=== PATIENT | female | born 1970 | race Caucasian/White ===

== ENCOUNTER → 2017-04-04 | Day surgery (SDC) | payer OTHER ==
[~2017-04-04] MED LIST: ATOR20TA58 PO; BUDE10.22 IH; BUPR150T11 PO; CETI10TA16 PO; CYCL10TA2 PO; FLUT16SP NS; GABA-586 PO; HYDR25TA9 PO; HYDR2TAB31 PO; IPRA4AER IH; IV RINGERS,LACTATED 1000ML 1,000 ML IV SCH; LEVO100T5 PO; LIDO30CR TP; LIDOCAINE 1% PF 2 ML VIAL. ID PRN; METF500T4 PO; METO50TA2 PO; MORP15TA PO; OMEP40CA5 PO; ONDANSETRON PF 4 MG/2 ML VIAL. IV PRN; PHENYLEPHRINE in 0.9% NACL PF 1 MG/10 ML DISP.SYRIN. IV ONE; POTA20TA82 PO; PROCHLORPERAZINE 10 MG/2 ML VIAL. IV PRN; RANI150T2 PO; SELENIUM; SUMA100T4 PO; ZOLP10TA4 PO; fentaNYL PF VIAL 100 MCG/2 ML VIAL IV PRN
[2017-04-04 12:50] VITALS: BP 125/85
== END | disposition home or self-care (01) ==
LOC: SURG 12:04
PROVIDERS: ATTEND Orthopaedic Surgery
DX: S83.519A Sprain of anterior cruciate ligament of unspecified knee, initial encounter (principal); Z53.8 Procedure and treatment not carried out for other reasons; S83.209A Unspecified tear of unspecified meniscus, current injury, unspecified knee, initial encounter; X58.XXXA Exposure to other specified factors, initial encounter; Y93.89 Activity, other specified; Y92.89 Other specified places as the place of occurrence of the external cause; Y99.8 Other external cause status; E78.00 Pure hypercholesterolemia, unspecified; E66.9 Obesity, unspecified; J45.909 Unspecified asthma, uncomplicated; E11.9 Type 2 diabetes mellitus without complications; E03.9 Hypothyroidism, unspecified; F32.9 Major depressive disorder, single episode, unspecified; Z72.0 Tobacco use; Z86.39 Personal history of other endocrine, nutritional and metabolic disease; Z90.710 Acquired absence of both cervix and uterus; Z88.8 Allergy status to other drugs, medicaments and biological substances
CPT/HCPCS: 82962; J2370; J0690

== ENCOUNTER 2017-04-18 11:43 | Day surgery (SDC) | payer OTHER ==
[~2017-04-18] VITALS: Ht 160 cm; Wt 91.0 kg
[~2017-04-18 11:43] MED LIST changes: +BUPIVACAINE 0.5% 50 ML VIAL. ONE; +BUPIVACAINE-EPI 0.25%-1:200000 50 ML VIAL. ONE; +EPINEPHrine VIAL 30 MG/30 ML VIAL ONE; -HYDR2TAB31 PO; +LIDOCAINE 2% PF Vial for OR 5 ML VIAL. ONE; -METO50TA2 PO; +METO50TA6 PO; -PHENYLEPHRINE in 0.9% NACL PF 1 MG/10 ML DISP.SYRIN. IV ONE; +PROPOFOL 20 ML IV ONE; +fentaNYL PF VIAL 100 MCG/2 ML VIAL ONE
[2017-04-18] MEDS ORDERED: LIDOCAINE 2% PF Vial for OR 5 ML VIAL. ONE (13:52)
[2017-04-18] MEDS ORDERED: ONDANSETRON PF 4 MG/2 ML VIAL. ONE (13:52)
[2017-04-18] MEDS ORDERED: FAMOTIDINE 20 MG/2 ML VIAL ONE (13:52)
[2017-04-18] MEDS ORDERED: DEXAMETHASONE SOD PHOS 20 MG/5 ML VIAL. ONE (13:52)
[2017-04-18] MEDS ORDERED: PROPOFOL 20 ML IV ONE (13:52)
[2017-04-18] MEDS ORDERED: fentaNYL PF VIAL 100 MCG/2 ML VIAL ONE ×3 (13:53→17:28)
[2017-04-18] MEDS ORDERED: MIDAZOLAM HCL/PF 2 MG/2 ML VIAL. ONE (13:53)
[2017-04-18] MEDS ORDERED: ROCURONIUM 100 MG/10 ML VIAL. ONE (13:55)
--- NOTE | 2017-04-18 15:42 | DISCH ---
DISCHARGE INSTRUCTIONS Condition on Discharge Condition on Discharge: Stable Activity After Discharge Activity Instructions for Disc: Other, see below Other activity instructions: weightbearing as tolerated with crutch assistance Weight Bearing Status after Di: As tolerated Diet after Discharge Diet after Discharge: Regular Wound Incision Care Wound/Incision Care: Ice to area for comfort, Change dressing Other wound/incision instructi: May remove dressing in 3 days may then shower Community/Resources/Services Services at Discharge: PT EVALUATE & TREAT (start physical therapy with range of motion and closed chain strengthening exercises advancing as tolerated) Contacting the DRKristie after DC Call your doctor for: Concerns you may have Follow-Up Follow up with: Alem 7-10 days Treatment/Equipment after DC Adaptive Equipment Issued: SAMIR Flores MD Apr 18, 2017 15:42
[2017-04-18] MEDS ORDERED: HYDR2TAB31 PO (15:44)
[2017-04-18] MEDS ORDERED: NEOSTIGMINE 10 MG/10 ML VIAL. ONE (16:53)
[2017-04-18] MEDS ORDERED: GLYCOPYRROLATE 1 MG/5 ML VIAL. ONE (16:54)
[2017-04-18] MEDS ORDERED: SEVOFLURANE > 120 MINUTES. IH ONE (17:31)
[2017-04-18] MEDS: fentaNYL PF VIAL 100 MCG/2 ML VIAL IV PRN ×2 (17:40→17:51)
--- NOTE | 2017-04-18 17:55 | PDOC4 ---
Operative Note Operative Note Date of surgery: 04/18/2017 Preoperative diagnosis: ACL and medial meniscal tears. Postoperative diagnosis: Same Operative procedure: Right knee arthroscopy allograft ACL reconstruction medial meniscus repair Surgeon: Alem Anesthesia: GenKristie endotracheal Estimated blood loss 10 mL Complications: None Operative indications: Patient is a 47-year-old female with an unstable right knee status post injury MRI confirmed clinical suspicion of an ACL tear and also showed medial meniscus tear. I had gone over natural course of ACL injury possibility of nonoperative treatment bracing if necessary versus operative treatment for reconstruction and addressing of the meniscus pathology. We talked about possibility of donor graft reconstruction versus autograft tissue and risks and benefits of each. She prefers to undergo the donor graft rout for ACL reconstruction and is aware of the long rehabilitation process possibility of infection continued instability nerve or blood vessel damage medical or other anesthetic competitions among others. Consent was obtained and she agrees to proceed Operative text: Patient was identified procedure verified patient placed in the supine position on the operating table after adequate amounts of general endotracheal anesthesia were administered the right lower extremity with a thigh tourniquet and the right lower extremity was prepped and draped in standard sterile fashion. The right knee was examined and found to have lax anterior cruciate ligamentassociated ligaments and stability. After timeout was performed patient procedure identified and verified the right lower extremity was exsanguinated by Esmarch bandage tourniquet inflated to 300 mmHg a lateral portal was established medial portal established using spinal needle localization and the knee joint was systematically examined patellofemoral articulation was in good condition no loose bodies noted in suprapatellar pouch or gutters ACL was noted to be torn as was a peripheral tear of the medial meniscus lateral meniscus was probed and found to be intact as were the weightbearing cartilage surfaces. As planned tibialis posterior allograft was prepared on the back table sized between a 9-1/2 and 10 mm diameter. A guidewire was placed at the 1:30 position with a 1 mm back wall planned and approximately 33 mm deep tunnel was drilled 10 mm wide penetration at about 40 mm with a 4 mm hole to accommodate a flip button any excess bone was removed to tibial insertion point was located and drilled to 10 mm as well any bony fragments were removed tunnel edges were smoothed and the Biomet toggle lock was marked to ensure adequate placement in the tunnel the toggle lock was passed and flipped without difficulty zip loop was brought through the medial portal and used to pass the graft up to the marked area resulting in about of 32 -33 mm graft placed inside the tunnel with excellent symmetric zip loop closure noted medial meniscal repair was then carried out before ACL tensioning meniscal rasp was used on the periphery to stimulate bleeding and a single curved FasT-Fix [employer] implant was used with a vertical mattress I'm sorry of vertical suture which opposed nicely and eliminated any defect that was previously probed. The ACL graft was then tensioned and the knee was taken through 10 flexion and extension cycles to eliminate any creep tibial fixation was carried out in extension with a Her fix 2 cannulated tibial peek implant 10 x 30 mm which provided excellent fixation graft edges were removed stability was restored full range of motion retained thorough irrigation carried out with normal saline solution closure of the anteromedial incision with buried Vicryl and subcuticular Monocryl portals were closed with nylon suture sterile dressings were applied toes were noted be warm and pink following deflation of the tourniquet after total tourniquet time a proximally an hour 15 minutes patient was returned recovery room in stable condition having tolerated procedure well SAMIR KITCHEN MD Apr 18, 2017 17:55
[2017-04-18] MEDS ORDERED: HYDROmorphone 2 MG TABLET PO PRN (18:15)
[2017-04-18] MEDS ORDERED: HYDROmorphone 2 MG/ML VIAL ONE (18:17)
[2017-04-18] MEDS ORDERED: HYDROmorphone 2 MG/ML VIAL IV PRN (18:45)
[2017-04-18 18:57] VITALS: BP 136/89
== END 2017-04-18 19:17 | disposition home or self-care (01) ==
LOC: SURG 11:43
PROVIDERS: ATTEND Orthopaedic Surgery
DX: S83.241A Other tear of medial meniscus, current injury, right knee, initial encounter (principal); X58.XXXA Exposure to other specified factors, initial encounter; Y93.89 Activity, other specified; Y92.89 Other specified places as the place of occurrence of the external cause; Y99.8 Other external cause status; E78.00 Pure hypercholesterolemia, unspecified; I10 Essential (primary) hypertension; J45.909 Unspecified asthma, uncomplicated; E66.9 Obesity, unspecified; E11.9 Type 2 diabetes mellitus without complications; F32.9 Major depressive disorder, single episode, unspecified; Z72.0 Tobacco use; Z68.35 Body mass index [BMI] 35.0-35.9, adult; Z90.710 Acquired absence of both cervix and uterus; Z87.39 Personal history of other diseases of the musculoskeletal system and connective tissue; Z88.6 Allergy status to analgesic agent; Z88.8 Allergy status to other drugs, medicaments and biological substances
CPT/HCPCS: 29882; 29888; 82962; J0171; J0690; J0780; J1100; J1170; J2250; J2405; J2704; J2710; J3010; J3490; S0028; C1713; C1763; C1769; J2001

== ENCOUNTER → 2018-06-08 | Outpatient (CLI) | payer MEDICARE, OTHER ==
[~2018-06-08] MED LIST changes: -BUPIVACAINE 0.5% 50 ML VIAL. ONE; -BUPIVACAINE-EPI 0.25%-1:200000 50 ML VIAL. ONE; -EPINEPHrine VIAL 30 MG/30 ML VIAL ONE; -GABA-586 PO; +GABA300C18 PO; +HYDR-2145 PO; -HYDR25TA9 PO; +HYDR2TAB31 PO; -IV RINGERS,LACTATED 1000ML 1,000 ML IV SCH; -LIDOCAINE 1% PF 2 ML VIAL. ID PRN; -LIDOCAINE 2% PF Vial for OR 5 ML VIAL. ONE; +METF500T16 PO; -METF500T4 PO; -ONDANSETRON PF 4 MG/2 ML VIAL. IV PRN; -PROCHLORPERAZINE 10 MG/2 ML VIAL. IV PRN; -PROPOFOL 20 ML IV ONE; -fentaNYL PF VIAL 100 MCG/2 ML VIAL IV PRN; -fentaNYL PF VIAL 100 MCG/2 ML VIAL ONE
[2018-06-08 16:10] LABS: BASO # 0.1 x10^3/uL (0.0-0.2); BASO % 1 % (0-3); EOS # 0.2 x10^3/uL (0.0-0.7); EOS % 3 % (0-3); HEMATOCRIT 45.9 % (36.0-47.0); LYMPH # 2.3 x10^3/uL (1.0-4.8); LYMPH % 28 % (24-48); MEAN CORPUSCULAR HEMOGLOBIN 32 pg (25-35); MEAN CORPUSCULAR HGB CONC 35 g/dL (31-37); MEAN CORPUSCULAR VOLUME 90 fL (79-100); MONO # 0.7 x10^3/uL (0.0-1.1); MONO % 9 % (0-9); NEUT # 4.9 x10^3uL (1.8-7.7); NEUT % 60 % (31-73); PLATELET COUNT 285 x10^3/uL (140-400); RED BLOOD COUNT 5.07 x10^6/uL (3.50-5.40); WHITE BLOOD COUNT 8.2 x10^3/uL (4.0-11.0)
[2018-06-08 17:26] LABS: ALBUMIN 3.8 g/dL (3.4-5.0); CALCIUM 9.2 mg/dL (8.5-10.1); CREATININE 0.9 mg/dL (0.6-1.0); GFR 67.1; POTASSIUM 3.3 mmol/L (3.5-5.1); TOTAL BILIRUBIN 0.6 mg/dL (0.2-1.0); TOTAL PROTEIN 7.6 g/dL (6.4-8.2)
== END | disposition home or self-care (01) ==
LOC: LAB 15:40
PROVIDERS: ATTEND Surgery
DX: Z01.818 Encounter for other preprocedural examination (principal)
CPT/HCPCS: 36415; 80053; 85025